=== PATIENT | male | born 1970 | race Caucasian/White ===

== ENCOUNTER 2024-09-09 15:42 | Emergency (ER) | payer OTHER ==
[~2024-09-09] VITALS: Ht 182.9 cm; Wt 95.0 kg
[2024-09-09 15:55] VITALS: BP 145/82; PULSE 65; RESP 20; TEMP 98.3; O2SAT 99
[2024-09-09] MEDS ORDERED: BUPR1TAB46 SL (16:00)
[2024-09-09] MEDS: IBUPROFEN 600 MG TABLET PO ONE (16:31)
[2024-09-09] MEDS: AMOX TR/POT CLAV 875 MG/125 MG TABLET PO ONE (16:31)
[2024-09-09] MEDS ORDERED: AMOX-457 PO (16:34)
[2024-09-09] MEDS ORDERED: IBUP-1492 PO (16:34)
[2024-09-09] MEDS ORDERED: ACET-3385 PO (16:34)
== END 2024-09-09 17:21 | disposition home or self-care (01) ==
LOC: EMS 15:45
DX: K08.89 Other specified disorders of teeth and supporting structures (principal); R51.9 Headache, unspecified
CPT/HCPCS: 99283